=== PATIENT | male | born 1950 | race Caucasian/White ===

== ENCOUNTER 2019-07-21 09:14 | Emergency (ER) | payer OTHER ==
[2019-07-21 09:23] VITALS: BP 153/78
--- NOTE | 2019-07-21 09:58 | XRAY Report ---
Reason: trauma, pain and swelling. Procedure Date: 07/21/2019 Accession Number: [id number] / [id number] Procedure: XR - Ankle 3 View LT CPT Code: FULL RESULT: EXAM: LEFT ANKLE RADIOGRAPHY EXAM DATE: 07/21/2019 09:37 AM. CLINICAL HISTORY: Trauma, pain and swelling. COMPARISON: None. TECHNIQUE: 3 views. FINDINGS: Bones: Short and ill-defined radiolucent line in the tip of the medial malleolus is noted; otherwise, no discrete fractures or bone lesions identified. Joints: No effusion. No subluxations. The ankle mortise is normally aligned. Soft Tissues: There is medial malleolus soft tissue swelling. IMPRESSION: Imaging artifact versus small non-displaced avulsion fracture, approximately 5 mm in the tip of the medial malleolus. RADIA
--- NOTE | 2019-07-21 10:06 | ED Physician Documentation ---
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 Pain onset in left ankle that wosened after a few hours. Has worse pain today.). No: Twist Where injury occurred: Home Timing - onset: Yesterday Timing - details: Abrupt onset, Still present Worsened by: Moving (ROM of the ankle, mostly inversion/eversion, but also hurts with walking up/down slight inclines. Just regular standing not as painful.) Associated symptoms: Swelling (some of the proximal foot/ankle areas). No: Weakness, Numbness Similar symptoms before: Has not had sx before Recently seen: Not recently seen Review of Systems Skin: denies: Abrasion (s), Laceration (s) Musculoskeletal: denies: Back pain Neurologic: denies: Focal weakness, Numbness PD PAST MEDICAL HISTORY - Past Medical History Cardiovascular: None Respiratory: None Neuro: None Endocrine/Autoimmune: None - Allergies Allergies/Adverse Reactions: Allergies Allergy/AdvReac Type Severity Reaction Status Date / Time No Known Drug Allergies Allergy Verified 07/21/19 09:23 - Living Situation Living Arrangement: reports: At home, Other (works in [place] at ? [employer] and has to be able to walk in work boots (high top lacing). ) PD ED PE NORMAL - Vitals Vital signs reviewed: Yes - General General: Alert and oriented X 3, No acute distress, Well developed/nourished - Back Back: No spinal TTP - Derm Derm: Normal color, Warm and dry - Extremities Extremities: Other (left ankle tender around the proximal foot and also in ankle. There is mild swelling. Tender at distal malleoli, both medial and lateral, but more medially.) Results - Vitals Vitals: Vital Signs - 24 hr 07/21/19 09:21 Temperature 36.6 C Heart Rate 68 Respiratory 16 Rate Blood Pressure 153/78 H O2 Saturation 98 Oxygen O2 Source Room air - Rads (name of study) left ankle Radiology: Prelim report reviewed, EMP read contemporaneously, See rad report PD MEDICAL DECISION MAKING - ED course Complexity details: reviewed results (area of lucency at distal medial malleolus possibly c/w avulsion fx. This can still be treated with ankle brace and weight bearing. He needs to wear high lace boots for work and is not able to miss the work (flies to [place] in few days). Discussed types of braces and Sweedo type lacing one will work best, likely. We do not have that type but should be readily available at store, such as [email or web address]. ), considered differential, d/w patient Departure - Departure Disposition: 01 Home, Self Care Clinical Impression: Ankle sprain Qualifiers: Encounter type: initial encounter Involved ligament of ankle: unspecified ligament Laterality: left Qualified Code(s): S93.402A - Sprain of unspecified ligament of left ankle, initial encounter Avulsion fracture of ankle Qualifiers: Encounter type: initial encounter Fracture type: closed Laterality: left Qualified Code(s): S82.892A - Other fracture of left lower leg, initial encounter for closed fracture Condition: Stable Record reviewed to determine appropriate education?: Yes Instructions: ED Sprain Ankle Comments: Ice often today to help keep swelling down. Continue some ibuprofen 600 mg 3 times a day with food for the next week or so. Add Tylenol if needed for pain. Use some ankle brace to help support it. The lace up type (Swede-O style) are good support for under boots. The Aircast we gave you can be used otherwise as well with lower shoes. I would anticipate pain with walking and particularly up and down inclines and ladders for several days to a couple of weeks. There is a subtle line at the end of the inside part of the ankle that may represent a small chip fracture. If so that could even take a month or so for full improvement. Activity as tolerated is okay. Elevate ice and rest your ankle at the end of the day. Discharge Date/Time: 07/21/19 11:00
[2019-07-21] MEDS ORDERED: IBUPROFEN 600 MG TABLET PO STA (10:33)
== END 2019-07-21 11:00 | disposition home or self-care (01) ==
LOC: ED 09:14
DX: S82.55XA Nondisplaced fracture of medial malleolus of left tibia, initial encounter for closed fracture (principal); S93.402A Sprain of unspecified ligament of left ankle, initial encounter; X50.1XXA Overexertion from prolonged static or awkward postures, initial encounter; Y93.39 Activity, other involving climbing, rappelling and jumping off; Y92.008 Other place in unspecified non-institutional (private) residence as the place of occurrence of the external cause
CPT/HCPCS: 73610; 99283; A9270

== ENCOUNTER 2020-03-17 11:57 | Outpatient (CLI) | payer OTHER ==
--- NOTE | 2020-03-17 12:22 | CT Report ---
Reason: CHRONIC SINUSITIS Procedure Date: 03/17/2020 Accession Number: [id number] / [id number] Procedure: CT - Sinuses CPT Code: Final Report FULL RESULT: PROCEDURE: Sinuses INDICATIONS: CHRONIC SINUSITIS TECHNIQUE: Noncontrast 3.0 mm axial images acquired from the frontal sinuses to the mid-sella, with coronal and sagittal reformats. For radiation dose reduction, the following was used: automated exposure control, adjustment of mA and/or kV according to patient size. COMPARISON: None. FINDINGS: Image quality: Excellent. Maxillary Sinuses: No bony remodeling or destruction. Sinuses are clear. Ethmoid Air Cells: No bony remodeling or destruction. Sinuses are clear. Sphenoid Sinuses: No bony remodeling or destruction. Sinuses are clear. Frontal Sinuses: No bony remodeling or destruction. Sinuses are clear. Ostiomeatal Complexes: Ostiomeatal complexes are patent. No Pricila cells. Miscellaneous: Visualized intra-orbital contents are normal. There are mild bilateral trevor bullosa. There is mild to moderate leftward nasal septal deviation. IMPRESSION: No significant active paranasal sinus disease is seen. Mild to moderate leftward nasal septal deviation. Reviewed by: Vahid Hurd MD on 03/17/2020 11:20 AM FELICIANO Approved by: Vahid Hurd MD on 03/17/2020 11:20 AM FELICIANO Station ID: [id number]
== END 2020-03-17 11:58 | disposition home or self-care (01) ==
LOC: DI 11:57
PROVIDERS: ATTEND Otolaryngology
DX: J32.9 Chronic sinusitis, unspecified (principal); J34.2 Deviated nasal septum
CPT/HCPCS: 70486

== ENCOUNTER 2020-03-25 14:31 | Outpatient (CLI) | payer OTHER | END 2020-03-25 14:32 | disposition home or self-care (01) | LOC: LAB 14:31 | PROVIDERS: ATTEND Internal Medicine Gastroenterology | DX: Z12.11 Encounter for screening for malignant neoplasm of colon (principal); Z86.010 Personal history of colon polyps; Z11.59 Encounter for screening for other viral diseases | CPT/HCPCS: 81599 ==

== ENCOUNTER 2020-12-15 08:04 | Outpatient (CLI) | payer MEDICARE, OTHER ==
[2020-12-15 08:30] LABS: BASOPHILS % (AUTO) 0.9 %; EOSINOPHILS # (AUTO) 0.1 10^3/uL (0.0-0.7); EOSINOPHILS % (AUTO) 1.3 %; HCT - HEMATOCRIT 44.5 % (42.0-52.0); HGB - HEMOGLOBIN 15.1 g/dL (14.0-18.0); LYMPHOCYTES # (AUTO) 1.3 10^3/uL (1.5-3.5); LYMPHOCYTES % (AUTO) 29.2 %; MEAN CORPUSCULAR HEMOGLOBIN 30.5 pg (27.0-31.0); MEAN CORPUSCULAR HGB CONC 33.9 g/dL (32.0-36.0); MEAN CORPUSCULAR VOLUME 89.9 fL (80.0-94.0); MEAN PLATELET VOLUME 9.7 fL (7.4-11.4); MONOCYTES # (AUTO) 0.4 10^3/uL (0.0-1.0); MONOCYTES % (AUTO) 8.3 %; NEUTROPHILS # (AUTO) 2.7 10^3/uL (1.5-6.6); NEUTROPHILS % (AUTO) 60.1 %; PLT - PLATELET COUNT 286 10^3/uL (130-450); RED BLOOD COUNT 4.95 10^6/uL (4.70-6.10); RED CELL DISTRIBUTION WIDTH 13.4 % (12.0-15.0); WHITE BLOOD COUNT 4.5 x10^3/uL (4.8-10.8)
[2020-12-15 09:00] LABS: THYROID STIMULATING HORMONE 2.66 uIU/mL (0.34-5.60)
[2020-12-15 14:10] LABS: ALBUMIN 4.2 g/dL (3.2-5.5); ALBUMIN/GLOBULIN RATIO 1.3 (1.0-2.2); ALKALINE PHOSPHATASE 54 IU/L (42-121); ALT ALANINE AMINOTRANSFERASE 24 IU/L (10-60); AST ASPARTATE AMINOTRANSFERASE 22 IU/L (10-42); BILIRUBIN,TOTAL 0.7 mg/dL (0.2-1.0); BUN - BLOOD UREA NITROGEN 18 mg/dL (6-20); CALCIUM 9.8 mg/dL (8.5-10.3); CARBON DIOXIDE - CO2 27 mmol/L (21-32); CHLORIDE 102 mmol/L (101-111); CHOL/HDL RATIO 3.5 (<5.0); CHOLESTEROL 217 mg/dL; CREATININE 0.9 mg/dL (0.6-1.2); GFR - MDRD 84 (>89); GLUCOSE 95 mg/dL (70-100); HDL CHOLESTEROL 62 mg/dL; LDL CHOLESTEROL,CALCULATED 134 mg/dL; LDL/HDL RATIO 2.2 (<3.6); POTASSIUM 4.3 mmol/L (3.5-5.0); SODIUM 139 mmol/L (135-145); TOTAL PROTEIN 7.4 g/dL (6.7-8.2); TRIGLYCERIDES 105 mg/dL; VLDL CHOLESTEROL 21 mg/dL
== END 2020-12-15 08:05 | disposition home or self-care (01) ==
LOC: LAB 08:04
PROVIDERS: ATTEND Family Medicine
DX: E03.9 Hypothyroidism, unspecified (principal); E29.1 Testicular hypofunction; N52.9 Male erectile dysfunction, unspecified
CPT/HCPCS: 36415; 80053; 80061; 83721; 84153; 84443; 85025

== ENCOUNTER 2022-02-24 09:29 | Outpatient (CLI) | payer MEDICARE, OTHER | END 2022-02-24 09:30 | disposition critical access hospital (66) | LOC: EMS 09:29 | DX: U07.1 COVID-19 (principal) | CPT/HCPCS: A0425; A0429 ==

== ENCOUNTER 2022-02-24 10:10 | Emergency (ER) | payer MEDICARE, OTHER ==
--- NOTE | 2022-02-24 10:42 | ED Physician Documentation ---
History of Present Illness - Stated complaint Stated Complaint: C+/DIARRHEA - Chief complaint Chief Complaint: General - History obtained from History obtained from: Patient, EMS - History of Present Illness Timing: How many days ago (2) - Additonal information Additional information: 71-year-old Sahil Sanchez is otherwise without significant medical illnesses he does take some testosterone and Synthroid and he has a history of sciatica. He has now developed COVID. He has had symptoms for 3 days and tested +2 days ago. He has developed diarrhea more than 4 times per day. He is having some intermittent chest pain. He is having some cough and congestion and is not overtly short of breath. He is immunized. He did not get boosted. Review of Systems Constitutional: reports: Fever, Chills, Myalgias, Fatigue, Sweats Eyes: denies: Decreased vision Ears: denies: Ear pain Nose: reports: Rhinorrhea / runny nose, Congestion Throat: reports: Sore throat Cardiac: reports: Chest pain / pressure. denies: Palpitations Respiratory: reports: Cough. denies: Dyspnea GI: reports: Diarrhea. denies: Nausea, Vomiting : denies: Dysuria, Frequency Skin: denies: Rash Musculoskeletal: reports: Back pain, Extremity pain. denies: Neck pain Neurologic: denies: Generalized weakness, Focal weakness, Numbness PD PAST MEDICAL HISTORY - Past Medical History Cardiovascular: None Respiratory: None Neuro: None Endocrine/Autoimmune: None - Allergies Allergies/Adverse Reactions: Allergies Allergy/AdvReac Type Severity Reaction Status Date / Time No Known Drug Allergies Allergy Verified 07/21/19 09:23 - Social History Does the pt smoke?: No Smoking Status: Never smoker PD ED PE NORMAL - Vitals Vital signs reviewed: Yes (hypertensive low grade fever) - General General: Alert and oriented X 3, No acute distress, Well developed/nourished - HEENT HEENT: Atraumatic, PERRL, EOMI - Neck Neck: Supple, no meningeal sign, No bony TTP - Cardiac Cardiac: RRR, No murmur - Respiratory Respiratory: No respiratory distress, Other (rhonchi in left base>R) - Abdomen Abdomen: Normal bowel sounds, Soft, Non tender, Non distended, No organomegaly - Back Back: No CVA TTP, No spinal TTP - Derm Derm: Normal color, Warm and dry, No rash - Extremities Extremities: No deformity, No edema Results - Vitals Vitals: Vital Signs - 24 hr 02/24/22 02/24/22 10:14 12:19 Temperature 37.7 C 36.6 C Heart Rate 93 72 Respiratory 16 14 Rate Blood Pressure 141/77 H 132/76 H O2 Saturation 94 97 Oxygen O2 Source Room air - EKG (time done) 1124 Rate: Rate (enter#) (74) Rhythm: NSR Ischemia: Other (minimal ST elevation in V2/3 ) Compare to prior EKG: Old EKG unavailable ([facility]) Computer interpretation: Agree with computer - Labs Labs: Laboratory Tests 02/24/22 02/24/22 02/24/22 11:10 11:10 11:10 WBC 7.0 RBC 4.54 L Hgb 13.5 L Hct 39.7 L MCV 87.4 MCH 29.7 MCHC 34.0 RDW 13.4 Plt Count 206 MPV 9.0 Neut # (Auto) 5.8 Lymph # (Auto) 0.6 L Tripp # (Auto) 0.5 Eos # (Auto) 0.0 Baso # (Auto) 0.0 Absolute Nucleated RBC 0.00 Nucleated RBC % 0.0 Sodium 133 L Potassium 3.9 Chloride 98 L Carbon Dioxide 26 Anion Gap 9.0 BUN 16 Creatinine 0.9 Estimated GFR (MDRD) 83 L Glucose 120 H Calcium 8.7 Total Bilirubin 0.5 AST 89 H ALT 119 H Alkaline Phosphatase 46 Troponin I High Sens 3.7 Total Protein 7.0 Albumin 3.8 Globulin 3.2 Albumin/Globulin Ratio 1.2 Lipase 40 - Rads (name of study) chest Radiology: Prelim report reviewed (Impression: No acute process.), EMP read indepedently, See rad report PD MEDICAL DECISION MAKING - ED course Complexity details: reviewed old records, reviewed results, re-evaluated patient, considered differential, d/w patient ED course: 71-year-old Sahil Sanchez has contracted COVID and has developed some diarrhea. He is a bit dehydrated and is administered intravenous saline. An x-ray of his chest is without evidence of acute infiltrate and blood work is otherwise unremarkable. Patient did have a reported low oxygen saturation in the field this did not bore out here in the emergency department. He does not have obvious infiltrate on his chest x-ray. He is treated here in the emergency department with intravenous saline and we will place him on a course of Paxlovid. Departure - Departure Disposition: 01 Home, Self Care Clinical Impression: COVID Instructions: ED Viral Syndrome, COVID-19 [facility], Flu and Cold: Nutrition, Prevention and Treatment Tips Follow-Up: Tasha Tavares MD [Primary Care Provider] - Comments: Sahil, today it looks like you have COVID and we did not find hypoxia or an infiltrate on your chest x-ray. Our expectation is that you will recover with symptomatic treatment. We are providing Paxlovid as an emergency use authorization antiviral. The expectation with this course of medicine is a decrease in your symptomatology more rapidly and less viral shedding. It is okay to take Imodium available [id number] for diarrhea. With COVID it is important to stay hydrated and use Tylenol or Advil as symptomatic treatment for aches and fever. Discharge Date/Time: 02/24/22 12:30
[2022-02-24] MEDS ORDERED: SODIUM CHLORIDE 0.9% 1,000 ML IV STA (10:47)
[2022-02-24 11:22] LABS: BASOPHILS % (AUTO) 0.1 %; HCT - HEMATOCRIT 39.7 % (42.0-52.0); HGB - HEMOGLOBIN 13.5 g/dL (14.0-18.0); LYMPHOCYTES # (AUTO) 0.6 10^3/uL (1.5-3.5); LYMPHOCYTES % (AUTO) 8.5 %; MEAN CORPUSCULAR HEMOGLOBIN 29.7 pg (27.0-31.0); MEAN CORPUSCULAR VOLUME 87.4 fL (80.0-94.0); MONOCYTES # (AUTO) 0.5 10^3/uL (0.0-1.0); MONOCYTES % (AUTO) 7.6 %; NEUTROPHILS # (AUTO) 5.8 10^3/uL (1.5-6.6); NEUTROPHILS % (AUTO) 83.5 %; PLT - PLATELET COUNT 206 10^3/uL (130-450); RED BLOOD COUNT 4.54 10^6/uL (4.70-6.10); RED CELL DISTRIBUTION WIDTH 13.4 % (12.0-15.0)
--- NOTE | 2022-02-24 11:28 | XRAY Report ---
PROCEDURE: Chest 1 View X-Ray INDICATIONS: chest pain TECHNIQUE: One view of the chest was acquired. COMPARISON: None FINDINGS: Surgical changes and devices: None. Lungs and pleura: No pleural effusions or pneumothorax. Lungs are clear. Mediastinum: Mediastinal contours appear normal. Heart size is normal. Bones and chest wall: No suspicious bony lesions. Overlying soft tissues appear unremarkable. IMPRESSION: No acute process. Reviewed by: Elyse Burden MD on 02/24/2022 11:27 AM PDT Approved by: Elyse Burden MD on 02/24/2022 11:27 AM PDT Station ID: [id number]
[2022-02-24 11:38] LABS: ALBUMIN 3.8 g/dL (3.2-5.5); ALBUMIN/GLOBULIN RATIO 1.2 (1.0-2.2); BILIRUBIN,TOTAL 0.5 mg/dL (0.2-1.0); CALCIUM 8.7 mg/dL (8.5-10.3); CREATININE 0.9 mg/dL (0.6-1.2); POTASSIUM 3.9 mmol/L (3.5-5.0)
[2022-02-24] MEDS ORDERED: NIRMATRELVIR/RITONAVIR PREPACK PO STA (11:52)
[2022-02-24 12:19] VITALS: BP 132/76
== END 2022-02-24 12:30 | disposition home or self-care (01) ==
LOC: EDUNIT# → ED 10:10
DX: U07.1 COVID-19 (principal); E86.0 Dehydration
CPT/HCPCS: 36415; 80053; 83690; 84484; 85025; 93005; 96360; 99284

== ENCOUNTER 2022-03-08 11:24 | Outpatient (CLI) | payer MEDICARE, OTHER ==
--- NOTE | 2022-03-08 14:51 | XRAY Report ---
PROCEDURE: Spine Scoliosis Study 2-3V INDICATIONS: LUMBAR DISC HERNIATION TECHNIQUE: Frontal and lateral standing views of the spine acquired. COMPARISON: None. FINDINGS: Convex left thoracolumbar spine scoliosis with apex at the L2 vertebral body. There is 16 degrees of leftward curvature of the thoracal lumbar spine. Mukherjee angle measures 16 degrees convex left. L1 and L 2 compression deformities of indeterminate age. L1 compression fracture results in approximately 10% loss of vertebral body height. L2 compression fracture results in approximately 25% loss of normal an terior vertebral body height. Multilevel degenerative disc changes. IMPRESSION: 1. Convex left thoracolumbar spine scoliosis. 2. L1 and L2 compression deformities of indeterminate age. If there is continued clinical concern for pathology, then MRI should be considered for further evalu ation. Reviewed by: Rebecca Katz MD, PhD on 03/08/2022 2:49 PM PDT Approved by: Rebecca Katz MD, PhD on 03/08/2022 2:49 PM PDT Station ID: [id number]
== END 2022-03-08 11:25 | disposition home or self-care (01) ==
LOC: DI.N 11:24
PROVIDERS: ATTEND Neurological Surgery
DX: M51.36 Other intervertebral disc degeneration, lumbar region (principal); M41.9 Scoliosis, unspecified; M48.56XA Collapsed vertebra, not elsewhere classified, lumbar region, initial encounter for fracture

== ENCOUNTER 2022-04-12 08:00 | Outpatient (CLI) | payer MEDICARE, OTHER ==
[2022-04-12 16:51] LABS: ALBUMIN 4.5 g/dL (3.2-5.5); ALKALINE PHOSPHATASE 54 IU/L (42-121); ALT ALANINE AMINOTRANSFERASE 31 IU/L (10-60); AST ASPARTATE AMINOTRANSFERASE 24 IU/L (10-42); BILIRUBIN,TOTAL 0.4 mg/dL (0.2-1.0); TOTAL PROTEIN 7.1 g/dL (6.7-8.2)
[2022-04-12 17:11] LABS: BILIRUBIN,DIRECT < 0.1 mg/dL (0.1-0.5)
[2022-04-13 06:09] LABS: HCV AB <0.1 s/co ratio (0.0-0.9)
== END 2022-04-12 23:59 | disposition home or self-care (01) ==
LOC: LAB.R 08:00
PROVIDERS: ATTEND Internal Medicine
DX: U07.1 COVID-19 (principal); Z11.59 Encounter for screening for other viral diseases; R74.8 Abnormal levels of other serum enzymes; N40.0 Benign prostatic hyperplasia without lower urinary tract symptoms; Z86.010 Personal history of colon polyps; E03.9 Hypothyroidism, unspecified; M54.50 Low back pain, unspecified
CPT/HCPCS: 80076; 86803; 87521

== ENCOUNTER 2022-05-11 16:18 | Outpatient (CLI) | payer MEDICARE, OTHER ==
[2022-05-11 17:17] LABS: BASOPHILS % (AUTO) 0.6 %; EOSINOPHILS # (AUTO) 0.1 10^3/uL (0.0-0.7); EOSINOPHILS % (AUTO) 1.5 %; HCT - HEMATOCRIT 39.8 % (42.0-52.0); HGB - HEMOGLOBIN 13.7 g/dL (14.0-18.0); LYMPHOCYTES # (AUTO) 1.2 10^3/uL (1.5-3.5); LYMPHOCYTES % (AUTO) 21.7 %; MEAN CORPUSCULAR HEMOGLOBIN 30.4 pg (27.0-31.0); MEAN CORPUSCULAR HGB CONC 34.4 g/dL (32.0-36.0); MEAN CORPUSCULAR VOLUME 88.2 fL (80.0-94.0); MEAN PLATELET VOLUME 8.9 fL (7.4-11.4); MONOCYTES # (AUTO) 0.4 10^3/uL (0.0-1.0); MONOCYTES % (AUTO) 7.9 %; NEUTROPHILS # (AUTO) 3.7 10^3/uL (1.5-6.6); NEUTROPHILS % (AUTO) 68.1 %; PLT - PLATELET COUNT 295 10^3/uL (130-450); RED BLOOD COUNT 4.51 10^6/uL (4.70-6.10); RED CELL DISTRIBUTION WIDTH 12.7 % (12.0-15.0); WHITE BLOOD COUNT 5.5 x10^3/uL (4.8-10.8)
[2022-05-11 21:38] LABS: ESTIMATED AVERAGE GLUCOSE 100 mg/dL (70-100); HEMOGLOBIN A1c% 5.1 % (4.27-6.07)
[2022-05-13 23:06] LABS: COPPER SERUM OR PLASMA 94 ug/dL (69-132); ZINC PLASMA OR SERUM 63 ug/dL (44-115)
== END 2022-05-11 16:19 | disposition home or self-care (01) ==
LOC: LAB 16:18
DX: C61 Malignant neoplasm of prostate (principal); R53.83 Other fatigue; Z13.1 Encounter for screening for diabetes mellitus
CPT/HCPCS: 36415; 82306; 82525; 82607; 83036; 84630; 85025; 86140

== ENCOUNTER 2022-06-13 15:48 | Outpatient (CLI) | payer MEDICARE, OTHER | END 2022-06-13 15:49 | disposition home or self-care (01) | LOC: LAB 15:48 | DX: C61 Malignant neoplasm of prostate (principal) | CPT/HCPCS: 36415; 85651 ==

== ENCOUNTER 2022-08-09 13:44 | Outpatient (CLI) | payer MEDICARE, OTHER | END 2022-08-09 13:45 | disposition home or self-care (01) | LOC: LAB 13:44 | PROVIDERS: ATTEND Nurse Practitioner Family | DX: C61 Malignant neoplasm of prostate (principal) | CPT/HCPCS: 81599; 84153 ==

== ENCOUNTER 2022-09-18 00:02 | Emergency (ER) | payer MEDICARE, OTHER ==
[2022-09-18] MEDS ORDERED: SODIUM CHLORIDE 0.9% 1,000 ML IV STA (00:12)
[2022-09-18 00:38] LABS: BASOPHILS % (AUTO) 0.9 %; EOSINOPHILS # (AUTO) 0.1 10^3/uL (0.0-0.7); EOSINOPHILS % (AUTO) 2.5 %; HGB - HEMOGLOBIN 13.1 g/dL (14.0-18.0); LYMPHOCYTES # (AUTO) 1.5 10^3/uL (1.5-3.5); LYMPHOCYTES % (AUTO) 33.9 %; MEAN CORPUSCULAR HEMOGLOBIN 28.7 pg (27.0-31.0); MEAN CORPUSCULAR HGB CONC 33.6 g/dL (32.0-36.0); MEAN CORPUSCULAR VOLUME 85.3 fL (80.0-94.0); MEAN PLATELET VOLUME 9.3 fL (7.4-11.4); MONOCYTES # (AUTO) 0.4 10^3/uL (0.0-1.0); MONOCYTES % (AUTO) 8.7 %; NEUTROPHILS # (AUTO) 2.4 10^3/uL (1.5-6.6); NEUTROPHILS % (AUTO) 53.8 %; PLT - PLATELET COUNT 264 10^3/uL (130-450); RED BLOOD COUNT 4.57 10^6/uL (4.70-6.10); WHITE BLOOD COUNT 4.5 x10^3/uL (4.8-10.8)
[2022-09-18 00:58] LABS: ALBUMIN 3.9 g/dL (3.2-5.5); ALBUMIN/GLOBULIN RATIO 1.3 (1.0-2.2); BILIRUBIN,TOTAL 0.6 mg/dL (0.2-1.0); CREATININE 0.8 mg/dL (0.6-1.2); POTASSIUM 3.3 mmol/L (3.5-5.0)
[2022-09-18] MEDS ORDERED: POTASSIUM CHLORIDE 20 MEQ TABLET PO STA (01:07)
[2022-09-18 01:35] VITALS: BP 122/80
--- NOTE | 2022-09-18 01:40 | ED Physician Documentation ---
History of Present Illness - Stated complaint Stated Complaint: RAPID HR - Chief complaint Chief Complaint: Cardiac - History obtained from History obtained from: Patient, Family - Additonal information Additional information: The patient comes to the emergency department chief complaint of "my heart has been beating fast." The patient states that he was feeling fairly normal today but that when he went to lay down in bed tonight, he Began to realize that his heart was beating faster than he felt like it should. Patient denies any chest pain or shortness of breath. He does note that he had a couple of beers this evening with a friend and really did not drink any water all the rest of the day before that. He denies any history of ongoing tachycardia or palpitations before. He did not try drinking any water at home, but when his palpitations continued on, he decided to come to the emergency department. The patient denies nausea or vomiting. No diarrhea. No fevers or chills. He has not been ill with anything recently. He is otherwise very healthy. He is not a smoker. No underlying heart or lung disease. Review of Systems Ten Systems: 10 systems reviewed and negative Constitutional: reports: Reviewed and negative Eyes: reports: Reviewed and negative Ears: reports: Reviewed and negative Nose: reports: Reviewed and negative Throat: reports: Reviewed and negative Cardiac: reports: Palpitations Respiratory: reports: Reviewed and negative GI: reports: Reviewed and negative : reports: Reviewed and negative Skin: reports: Reviewed and negative Musculoskeletal: reports: Reviewed and negative Neurologic: reports: Reviewed and negative Psychiatric: reports: Reviewed and negative Endocrine: reports: Reviewed and negative Immunocompromised: reports: Reviewed and negative PD PAST MEDICAL HISTORY - Past Medical History Past Medical History: No Cardiovascular: None Respiratory: None Neuro: None Endocrine/Autoimmune: None GI: None : None HEENT: None Psych: None Musculoskeletal: None Derm: None - Past Surgical History Past Surgical History: No - Present Medications Home Medications: Ambulatory Orders Medication Instructions Recorded Confirmed No Known Home Medications 09/18/22 09/18/22 - Allergies Allergies/Adverse Reactions: Allergies Allergy/AdvReac Type Severity Reaction Status Date / Time No Known Drug Allergies Allergy Verified 09/18/22 00:05 - Social History Does the pt smoke?: No Smoking Status: Never smoker Does the pt drink ETOH?: No Does the pt have substance abuse?: No - Immunizations Immunizations are current?: No - POLST Patient has POLST: No PD ED PE NORMAL - Vitals Vital signs reviewed: Yes - General General: Alert and oriented X 3, No acute distress, Well developed/nourished - HEENT HEENT: Atraumatic, PERRL, EOMI, Moist mucous membranes - Neck Neck: Supple, no meningeal sign - Cardiac Cardiac: No murmur, Other (Mildly tachycardic, but with regular rate and rhythm.) - Respiratory Respiratory: No respiratory distress, Clear bilaterally - Abdomen Abdomen: Soft, Non tender, Non distended - Derm Derm: Normal color, Warm and dry, No rash - Extremities Extremities: No deformity, No edema - Neuro Neuro: Alert and oriented X 3, semi driver 2-12 intact, Normal speech - Psych Psych: Normal mood, Normal affect Results - Vitals Vitals: Vital Signs - 24 hr 09/18/22 09/18/22 09/18/22 00:05 00:07 00:53 Temperature 36.5 C 36.5 C Heart Rate 112 H 100 94 Respiratory 16 16 16 Rate Blood Pressure 143/86 H 147/90 H 128/83 H O2 Saturation 97 98 100 09/18/22 09/18/22 09/18/22 01:10 01:20 01:35 Temperature Heart Rate 95 91 Respiratory 16 17 15 Rate Blood Pressure 138/92 H 122/80 O2 Saturation 100 99 Oxygen O2 Source Room air - EKG (time done) 0011 Rate: Rate (enter#) (99) [place]: Normal Intervals: Normal [place] QRS: Normal Ischemia: Normal ST segments Compare to prior EKG: Old EKG unavailable Computer interpretation: Agree with computer - Labs Labs: Laboratory Tests 09/18/22 09/18/22 09/18/22 00:28 00:28 00:28 WBC 4.5 L RBC 4.57 L Hgb 13.1 L Hct 39.0 L MCV 85.3 MCH 28.7 MCHC 33.6 RDW 13.0 Plt Count 264 MPV 9.3 Neut # (Auto) 2.4 Lymph # (Auto) 1.5 [place] # (Auto) 0.4 Eos # (Auto) 0.1 Baso # (Auto) 0.0 Absolute Nucleated RBC 0.00 Nucleated RBC % 0.0 Sodium 137 Potassium 3.3 L Chloride 99 L Carbon Dioxide 25 Anion Gap 13.0 BUN 15 Creatinine 0.8 Estimated GFR (MDRD) 95 Glucose 106 H Calcium 9.0 Total Bilirubin 0.6 AST 21 ALT 20 Alkaline Phosphatase 61 Total Protein 7.0 Albumin 3.9 Globulin 3.1 Albumin/Globulin Ratio 1.3 Lipase 46 TSH 3.97 PD MEDICAL DECISION MAKING - ED course Complexity details: reviewed results, re-evaluated patient, considered differential, d/w patient, d/w family ED course: The patient was given water to drink orally, plus a liter of 0.9 normal saline. His EKG was unremarkable. His labs showed slight hypokalemia at 3.3 and slight anemia with a hemoglobin of 13.1. The patient was given a dose of K-Dur 20 mEq. We have discussed the findings and the likelihood that the mild sinus tachycardia is caused by dehydration. We have discussed the need for follow-up, should the patient have repeated episodes not associated with dehydration. We have discussed the usual indications for return. The patient is stable for discharge home. Departure - Departure Disposition: 01 Home, Self Care Clinical Impression: Dehydration, Hypokalemia, Palpitations Condition: Stable Instructions: ED Dehydration, ED Potassium Deficiency Comments: Your heart rate was slightly elevated when you came to the emergency department, but has completely normalized now with IV fluids. Your labs overall look good. Your potassium was very mildly low and you were treated with an dose of supplement for this. Unless it becomes a chronic problem, you do not necessarily need to be on ongoing supplements for the potassium. Just be sure to get a well-rounded diet and include some foods high in potassium on a regular basis. Your thyroid hormones were normal, indicating that the current dose of your thyroid medicine is appropriate. Please follow-up with your primary care physician for further concerns. Most likely, your elevated heart rate was due to with some degree of dehydration; however, if you have repeated episodes like this and you are not drinking plenty of fluids, you will need to follow-up with your primary doctor to discuss potentially having an event monitor and further e valuation of the palpitations.
== END 2022-09-18 01:54 | disposition home or self-care (01) ==
LOC: ED 00:02
DX: E86.0 Dehydration (principal); E87.6 Hypokalemia; R00.2 Palpitations
CPT/HCPCS: 36415; 80053; 83690; 84443; 85025; 93005; 96360; 99282; 99284; A9270

== ENCOUNTER 2022-10-01 11:58 | Outpatient (CLI) | payer MEDICARE, OTHER | END 2022-10-01 11:59 | disposition home or self-care (01) | LOC: LAB 11:58 | PROVIDERS: ATTEND Nurse Practitioner Family | DX: C61 Malignant neoplasm of prostate (principal) | CPT/HCPCS: 81599; 84153 ==

== ENCOUNTER 2022-12-05 11:15 | Outpatient (CLI) | payer MEDICARE, OTHER ==
[2022-12-05 17:39] LABS: BASOPHILS % (AUTO) 0.6 %; HCT - HEMATOCRIT 41.5 % (42.0-52.0); HGB - HEMOGLOBIN 13.5 g/dL (14.0-18.0); LYMPHOCYTES # (AUTO) 0.6 10^3/uL (1.5-3.5); LYMPHOCYTES % (AUTO) 18.7 %; MEAN CORPUSCULAR HEMOGLOBIN 27.1 pg (27.0-31.0); MEAN CORPUSCULAR HGB CONC 32.5 g/dL (32.0-36.0); MEAN CORPUSCULAR VOLUME 83.3 fL (80.0-94.0); MEAN PLATELET VOLUME 9.9 fL (7.4-11.4); MONOCYTES # (AUTO) 0.2 10^3/uL (0.0-1.0); MONOCYTES % (AUTO) 6.1 %; NEUTROPHILS # (AUTO) 2.4 10^3/uL (1.5-6.6); PLT - PLATELET COUNT 177 10^3/uL (130-450); RED BLOOD COUNT 4.98 10^6/uL (4.70-6.10); RED CELL DISTRIBUTION WIDTH 13.9 % (12.0-15.0); WHITE BLOOD COUNT 3.3 x10^3/uL (4.8-10.8)
[2022-12-05 17:59] LABS: ALBUMIN 3.7 g/dL (3.2-5.5); ALBUMIN/GLOBULIN RATIO 1.1 (1.0-2.2); BILIRUBIN,TOTAL 0.5 mg/dL (0.2-1.0); CALCIUM 8.9 mg/dL (8.5-10.3); CREATININE 0.9 mg/dL (0.6-1.2); POTASSIUM 4.2 mmol/L (3.5-5.0); TOTAL PROTEIN 7.1 g/dL (6.7-8.2)
== END 2022-12-05 11:30 | disposition home or self-care (01) ==
LOC: LAB.N 11:15
PROVIDERS: ATTEND Physician Assistant
DX: R52 Pain, unspecified (principal); R19.7 Diarrhea, unspecified
CPT/HCPCS: 36415; 80053; 81599; 85025; 87207

== ENCOUNTER 2023-01-03 14:58 | Outpatient (CLI) | payer MEDICARE, OTHER | END 2023-01-03 14:59 | disposition home or self-care (01) | LOC: LAB 14:58 | PROVIDERS: ATTEND Nurse Practitioner Family | DX: C61 Malignant neoplasm of prostate (principal) | CPT/HCPCS: 81599; 84153 ==

== ENCOUNTER 2023-04-04 10:38 | Outpatient (CLI) | payer MEDICARE, OTHER | END 2023-04-04 10:39 | disposition home or self-care (01) | LOC: LAB 10:38 | PROVIDERS: ATTEND Nurse Practitioner Family | DX: C61 Malignant neoplasm of prostate (principal) | CPT/HCPCS: 81599; 84153 ==

== ENCOUNTER 2023-10-10 09:44 | Outpatient (CLI) | payer MEDICARE, OTHER ==
[2023-10-10 10:01] LABS: BASOPHILS % (AUTO) 0.6 %; HCT - HEMATOCRIT 42.3 % (42.0-52.0); HGB - HEMOGLOBIN 13.8 g/dL (14.0-18.0); LYMPHOCYTES # (AUTO) 1.3 10^3/uL (1.5-3.5); LYMPHOCYTES % (AUTO) 26.2 %; MEAN CORPUSCULAR HEMOGLOBIN 28.6 pg (27.0-31.0); MEAN CORPUSCULAR HGB CONC 32.6 g/dL (32.0-36.0); MEAN CORPUSCULAR VOLUME 87.6 fL (80.0-94.0); MEAN PLATELET VOLUME 8.8 fL (7.4-11.4); MONOCYTES # (AUTO) 0.4 10^3/uL (0.0-1.0); MONOCYTES % (AUTO) 7.7 %; NEUTROPHILS # (AUTO) 3.2 10^3/uL (1.5-6.6); NEUTROPHILS % (AUTO) 65.1 %; PLT - PLATELET COUNT 304 10^3/uL (130-450); RED BLOOD COUNT 4.83 10^6/uL (4.70-6.10); RED CELL DISTRIBUTION WIDTH 13.2 % (12.0-15.0)
[2023-10-10 10:10] LABS: ALBUMIN 4.3 g/dL (3.2-5.5); ALBUMIN/GLOBULIN RATIO 1.7 (1.0-2.2); ALKALINE PHOSPHATASE 63 IU/L (42-121); ALT ALANINE AMINOTRANSFERASE 16 IU/L (10-60); AST ASPARTATE AMINOTRANSFERASE 19 IU/L (10-42); BILIRUBIN,TOTAL 0.6 mg/dL (0.2-1.0); BUN - BLOOD UREA NITROGEN 16 mg/dL (6-20); CALCIUM 9.5 mg/dL (8.5-10.3); CARBON DIOXIDE - CO2 30 mmol/L (21-32); CHLORIDE 102 mmol/L (101-111); CHOL/HDL RATIO 3.8 (<5.0); CHOLESTEROL 203 mg/dL; CREATININE 0.9 mg/dL (0.6-1.3); GFR - MDRD 83 (>89); GLUCOSE 90 mg/dL (74-104); HDL CHOLESTEROL 54 mg/dL; LDL CHOLESTEROL,CALCULATED 129 mg/dL; LDL/HDL RATIO 2.4 (<3.6); POTASSIUM 3.9 mmol/L (3.5-4.5); SODIUM 136 mmol/L (135-145); TOTAL PROTEIN 6.8 g/dL (6.4-8.9); TRIGLYCERIDES 98 mg/dL (48-352); VLDL CHOLESTEROL 20 mg/dL
[2023-10-10 10:25] LABS: THYROID STIMULATING HORMONE 2.74 uIU/mL (0.34-5.60)
== END 2023-10-10 09:45 | disposition home or self-care (01) ==
LOC: LAB 09:44
PROVIDERS: ATTEND Nurse Practitioner Family
DX: Z00.00 Encounter for general adult medical examination without abnormal findings (principal); C61 Malignant neoplasm of prostate; R74.8 Abnormal levels of other serum enzymes; Z86.010 Personal history of colon polyps; E03.9 Hypothyroidism, unspecified; M54.50 Low back pain, unspecified; Z86.16 Personal history of COVID-19; Z79.899 Other long term (current) drug therapy
CPT/HCPCS: 36415; 80053; 80061; 81599; 83721; 84153; 84403; 84443; 85025

== ENCOUNTER 2024-01-07 11:33 | Outpatient (CLI) | payer MEDICARE, OTHER | END 2024-01-07 11:34 | disposition home or self-care (01) | LOC: LAB 11:33 | PROVIDERS: ATTEND Nurse Practitioner Family | DX: C61 Malignant neoplasm of prostate (principal) | CPT/HCPCS: 81599 ==

== ENCOUNTER 2024-03-31 14:20 | Outpatient (CLI) | payer MEDICARE, OTHER | END 2024-03-31 14:21 | disposition home or self-care (01) | LOC: LAB 14:20 | DX: C61 Malignant neoplasm of prostate (principal) | CPT/HCPCS: 81599 ==

== ENCOUNTER 2024-06-26 10:18 | Outpatient (CLI) | payer MEDICARE, OTHER | END 2024-06-26 10:19 | disposition home or self-care (01) | LOC: LAB 10:18 | PROVIDERS: ATTEND Nurse Practitioner Family | DX: C61 Malignant neoplasm of prostate (principal) | CPT/HCPCS: 81599 ==